=== PATIENT | male | born 1975 | race African-American/Black ===

== ENCOUNTER 2018-07-31 14:00 | Emergency (ER) | payer OTHER ==
--- NOTE | 2018-07-31 14:25 | PDOC ---
History of Present Illness - General Chief Complaint: Cold Symptoms Stated Complaint: FEVER & BODY ACHES Time Seen by Provider: 07/31/18 14:24 History Source: Patient - History of Present Illness Initial Comments: 07/31/18 16:02 2 week h/o cough, fever (103), body ache abdominal pain 2 episodes of vomiting Past History - Past Medical History Allergies/Adverse Reactions: Allergies Allergy/AdvReac Type Severity Reaction Status Date / Time No Known Allergies Allergy Verified 07/31/18 14:21 HTN: Yes (NON COMPLIANT WITH MEDS) - Immunization History Td Vaccination: No (MORE THAN 10 YEARS) - Suicide/Smoking/Psychosocial Hx Smoking Status: No Smoking History: Never smoked Have you smoked in the past 12 months: No Number of Cigarettes Smoked Daily: 0 Hx Alcohol Use: No Drug/Substance Use Hx: No Substance Use Type: Alcohol Hx Substance Use Treatment: No ED Treatment Course - LABORATORY CBC & Chemistry Diagram: 07/31/18 15:15 07/31/18 15:15 Medical Decision Making - Medical Decision Making 07/31/18 16:02 42 year old male *DC/Admit/Observation/Transfer Diagnosis at time of Disposition: Viral syndrome - Discharge Dispostion Disposition: HOME Condition at time of disposition: Good Decision to Admit order: No - Referrals Referrals: Eddie Lyman MD [Primary Care Provider] - - Patient Instructions Printed Discharge Instructions: DI for Viral Syndrome Additional Instructions: You can take Tylenol (up to 4000 mg daily) alternating with Motrin (up to 3200 mg daily) for temperature and pain. Follow up with your primary care doctor in the next 3 days. Return to the Emergency Department for any new/worsening/concerning symptoms. - Post Discharge Activity Forms/Work/School Notes: Back to Work
[2018-07-31 14:40] VITALS: BMI 30.7
[2018-07-31] MEDS ORDERED: SODIUM CHLORIDE 0.9% 500 ML INFUS.BAG IV ONE (14:43)
[2018-07-31] MEDS ORDERED: ACETAMINOPHEN 1000 MG/100 ML VIAL (NON FORMULARY) IVPB ONE (14:43)
--- NOTE | 2018-07-31 14:44 | PDOC ---
Attending Attestation - Resident Resident Name: MinnieLayne - ED Attending Attestation I have performed the following: I have examined & evaluated the patient, The case was reviewed & discussed with the resident, I agree w/resident's findings & plan, Exceptions are as noted - HPI HPI: 07/31/18 16:08 Mr Nation presents to the ER with a complaint of upper respiratory illness Pt reports 2 weeks of cough, fevers, bodyaches After resting at home his symptoms improved He returned to work last week and within 4 days he felt ill again HE began having body aches, 2 episodes of vomiting - Physicial Exam PE: 07/31/18 16:26 GENERAL: The patient is in no acute distress, pt looks ill. HEAD: Normal EYES: PERRLA, EOMI, sclera anicteric, conjunctiva clear. ENT: Ears normal, nares patent, oropharynx clear without exudates, no tonsillar enlargement. Moist mucous membranes. TM nml, NECK: Normal range of motion, supple without lymphadenopathy LUNGS: Breath sounds equal, clear to auscultation bilaterally. No wheezes, and no crackles. HEART:Regular rate and rhythm, normal S1 and S2 without murmur, rub or gallop. ABDOMEN: Soft, nontender, normoactive bowel sounds. EXTREMITIES: Normal range of motion, no edema. NEUROLOGICAL: Cranial nerves II through XII grossly intact. Normal speech. No focal neurological deficits. SKIN: Warm, Dry, normal turgor, no rashes or lesions noted. - Medical Decision Making 07/31/18 16:29 Laboratory Tests 07/31/18 07/31/18 07/31/18 14:40 15:15 15:15 WBC 6.1 Hgb 14.9 Hct 43.7 Plt Count 323 BUN 10 Creatinine 1.2 Influenza A (Rapid) Negative Influenza B (Rapid) Negative CXR - no infiltrate 07/31/18 16:32 Pt given Tylenol IV and IV fluids Temp decreased to 100.5 Pt feels better but not perfect Will plan to discharge to home Viral syndrome Will ask pt to follow up with [facility] Will give Tamiflu (symptoms returned 3 days ago) we have discussed potential nausea and the fact that this will AT MOST decrease length of symptoms for <1 day Return to the ER for any worsening symptoms Clinical impression: viral syndrome, initial presentation possible influenza, initial presentation
[2018-07-31] MEDS ORDERED: ACETAMINOPHEN INJECTION 100 ML IVPB ONE (14:51)
[2018-07-31 15:36] LABS: BASO % 4.1 % (0-2.0); EOS % 0.3 % (0-4.5); HEMATOCRIT 43.7 % (35.4-49); HEMOGLOBIN 14.9 GM/dl (11.7-16.9); LYMPH % 9.1 % (8-40); MCH 30.9 pg (25.7-33.7); MCHC 34.1 g/dl (32.0-35.9); MEAN CELL VOLUME 90.4 fl (80-96); MEAN PLT VOLUME 7.7 fl (7.5-11.1); MONO % 10.6 % (3.8-10.2); NEUT % 75.9 % (42.8-82.8); PLATELET COUNT 323 K/MM3 (134-434); RBC 4.83 M/mm3 (4.00-5.60); RDW 11.6 % (11.9-15.9); WHITE BLOOD COUNT 6.1 K/mm3 (4.0-10.8)
[2018-07-31 15:42] LABS: ALBUMIN 4.4 g/dl (3.4-5.0); ALK PHOS 46 U/L (45-117); ANION GAP 7 MMOL/L (8-16); BILIRUBIN,TOTAL 0.7 mg/dl (0.2-1); BLOOD UREA NITROGEN 10 mg/dl (7-18); CALCIUM 9.2 mg/dl (8.5-10); CHLORIDE 100 mmol/L (98-107); CO2 26 mmol/L (21-32); CREATININE 1.2 mg/dl (0.55-1.3); GLUCOSE,RANDOM 114 mg/dl (74-106); POTASSIUM 4.2 mmol/L (3.5-5.1); SGOT/AST 21 U/L (15-37); SGPT/ALT 25 U/L (13-61); SODIUM 133 mmol/L (136-145); TOT PROT 7.7 g/dl (6.4-8.2)
[2018-07-31 16:10] VITALS: BP 122/77; PULSE 95; TEMP 100.5
== END 2018-07-31 16:28 | disposition home or self-care (01) ==
LOC: FER 14:00
DX: B34.9 Viral infection, unspecified (principal); I10 Essential (primary) hypertension
CPT/HCPCS: 36415; 71045-TC-FY; 80053; 85025; 87804; 99283-25; J0131

== ENCOUNTER 2019-08-02 13:30 | Emergency (ER) | payer OTHER ==
[2019-08-02 13:37] VITALS: BP 148/100; PULSE 84; TEMP 98.6; BMI 32.1
--- NOTE | 2019-08-05 16:48 | PDOC ---
Documentation entered by Catrina Fleming SCRIBE, acting as scribe for Jose Iniguez MD. Jose Iniguez MD: This documentation has been prepared by the scribeLonnie Maria, SCRIBE, under my direction and personally reviewed by me in its entirety. I confirm that the documentation accurately reflects all work, treatment, procedures, and medical decision making performed by me. History of Present Illness - General Chief Complaint: Cold Symptoms Stated Complaint: COLD SYMPTOMS Time Seen by Provider: 08/02/19 13:36 History Source: Patient - History of Present Illness Initial Comments: 08/02/19 14:48 Patient is a 43 year old with no significant past medical history who presents to the emergency department for evaluation of a productive cough with phlegm and rhinitis for 10 days. 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 Patient reports endorsing a productive cough with phlegm, sore throat, and generalized weakness, he also reports taking off from work to rest with no relief of symptoms prompting him to the ER. He denies any recent fevers, headache or dizziness. He denies any recent nausea , vomiting, diarrhea or constipation. He denies any recent chest pain or shortness of breath. He denies any recent dysuria, frequency, urgency or hematuria. Allergies: NDKA Past surgical history: None reported. Social History: Nonsmoker. Denies EtOH use and recreational drug use. Past History - Past Medical History Allergies/Adverse Reactions: Allergies Allergy/AdvReac Type Severity Reaction Status Date / Time No Known Allergies Allergy Verified 07/31/18 14:21 Home Medications: Ambulatory Orders Oseltamivir Phosphate [Tamiflu -] 75 mg PO BID #10 capsule 07/31/18 COPD: No HTN: Yes (NON COMPLIANT WITH MEDS) - Immunization History Td Vaccination: No (MORE THAN 10 YEARS) - Psycho Social/Smoking Cessation Hx Smoking Status: No Smoking History: Never smoked Have you smoked in the past 12 months: No Number of Cigarettes Smoked Daily: 0 Information on smoking cessation initiated: No Hx Alcohol Use: No Drug/Substance Use Hx: No Substance Use Type: Alcohol Hx Substance Use Treatment: No Review of Systems - Review of Systems Able to Perform ROS?: Yes Comments:: 08/02/19 14:49 A complete review of 10 out of 10 review of systems is taken and is negative apart from what is previously mentioned below and in the HPI. *Physical Exam - Vital Signs Last Vital Signs Temp Pulse Resp BP Pulse Ox 98.6 F 84 16 148/100 100 08/02/19 13:31 08/02/19 13:31 08/02/19 13:31 08/02/19 13:31 08/02/19 13:31 - Physical Exam 08/02/19 14:48 Vitals: Triage Vital signs reviewed General Appearance: no acute distress, well nourished well developed, Head: Atraumatic, normocephalic Eyes: Pupils equal reactive round, extraocular movement intact Nose: Nares patent bilaterally;no nasal congestion Throat: Posterior oropharynx without erythema, mucous membranes moist, Neck: Supple;No Nuchal rigidity Chest Wall: Nontender Cardiac: Regular rate and rhythm, no murmurs, no rubs, no gallops, Lungs: Clear to auscultation bilateral, good air movement bilaterally, Abdomen: Soft, nondistended, normal bowel sounds, nontender to palpation Rectal: Exam deferred Extremities: Full range of motion to all extremities, no cyanosis, clubbing, or edema Skin: Warm and dry, no rashes or lesions, no petechiae Neuro: AOX3; Cranial Nerves 2-12 grossly c intact, Strength intact to all extremities, Sensation intact to all extremities, gait normal Psych: normal mood, normal affect Medical Decision Making - Medical Decision Making 08/06/19 12:08 History and examination consistent with viral URI well-appearing no apparent distress normal examination Findings discussed with patient. Patient feels comfortable with day off from work he will follow-up with his doctor this week he will return to ED for any severe worsening symptoms or for any concerns Findings, the need for follow-up and strict return instructions discussed with patient. Discharge - Discharge Information Problems reviewed: Yes Clinical Impression/Diagnosis: URI (upper respiratory infection) Qualifiers: URI type: unspecified URI Qualified Code(s): J06.9 - Acute upper respiratory infection, unspecified Condition: Stable Disposition: HOME - Admission No - Follow up/Referral Referrals: Eddie Lyman MD [Primary Care Provider] - - Patient Discharge Instructions Patient Printed Discharge Instructions: How to Avoid a Cold or Flu, DI for Viral Upper Respiratory Infection -- Adult Additional Instructions: Drink plenty of fluids. Alternate Tylenol and Motrin as prescribed. Return to the emergency department for any severe worsening symptoms or for any concerns. Frequently wash hands try not to touch face humidifier at night - Post Discharge Activity Work/Back to School Note: Back to Work
== END 2019-08-02 14:33 | disposition home or self-care (01) ==
LOC: FER 13:30
DX: J06.9 Acute upper respiratory infection, unspecified (principal); I10 Essential (primary) hypertension
CPT/HCPCS: 99282-25